=== PATIENT | male | born 1960 | race Caucasian/White ===

== ENCOUNTER 2022-06-27 07:03 | Outpatient (CLI) | payer OTHER | END 2022-06-27 07:30 | disposition home or self-care (01) | LOC: TOM 07:03 | PROVIDERS: ATTEND Internal Medicine | DX: N40.0 Benign prostatic hyperplasia without lower urinary tract symptoms (principal); N20.0 Calculus of kidney; R31.29 Other microscopic hematuria; B00.9 Herpesviral infection, unspecified; R10.9 Unspecified abdominal pain ==

== ENCOUNTER 2023-04-24 10:58 | Outpatient (CLI) | payer OTHER | END 2023-04-24 11:02 | disposition home or self-care (01) | LOC: RAD 10:58 | PROVIDERS: ATTEND Internal Medicine Pulmonary Disease | DX: R91.1 Solitary pulmonary nodule (principal) ==

== ENCOUNTER 2025-01-25 07:24 | Outpatient (CLI) | payer OTHER ==
[2025-01-25 09:26] LABS: URINE APPEARANCE Clear; URINE BILIRRUBIN Negative (NEGATIVE); URINE BLOOD Negative; URINE COLOR Yellow; URINE KETONE Trace (NEGATIVE); URINE LEUKOCYTE Negative; URINE NITRATE Negative; URINE PROTEIN Trace (NEGATIVE); URINE UROBILINOGEN 1.0 E.U./dl
[2025-01-25 09:28] LABS: URINE BACTERIA 4.7 uL (0.0-1933)
[2025-01-25 09:30] LABS: BASO % 0.9 % (0.1-1.2); EOS # 0.12 (0.04-0.54); EOS % 2.2 % (0.7-7.0); LYMPH # 1.96 (1.18-3.74); LYMPH % 35.3 % (19.3-53.1); MEAN PLATELET VOLUME 9.70 fl (9.4-12.4); MONO # 0.45 (0.24-0.82); MONO % 8.1 % (4.7-12.5); NEUT # 2.96 (1.56-6.13); NEUT % 53.1 % (34.0-71.1); RED CELL DISTRIBUTION WIDTH 13.2 % (11.6-14.4)
[2025-01-25 09:39] LABS: URINE CAST 0.00 uL (0.0-1.40); URINE EPITHELIAL CELLS 0.1 uL (0.0-38.8); URINE GLUCOSE >=1000 MG/DL (NEGATIVE); URINE RBC 0.5 uL (0.0-20.8); URINE WBC 1.3 uL (0.0-23.2)
[2025-01-25 10:13] LABS: ALT/SGPT 34.0 U/L (12-78); AST/SGOT 24.0 U/L (15-37); BILIRUBIN TOTAL 0.58 mg/dL (0.3-1.2); BUN CREA RATIO 17.0 (7.0-25.0); CHOL HDL RATIO 2.9 (0-5.0); CREATININE SERUM 1.13 mg/dL (0.70-1.30); GFR 65.33; GLOBULINA 3.2 G/DL (2.4-3.5); GLUCOSE FASTING 125.0 mg/dL (65-100); HDL 39.0 mg/dl (40-60); LDL 50.0 mg/dl (0-130); OSMOLALITY SERUM 287.0 MOSM/KG (275-295); VLDL 26.0 (0-39)
[2025-01-25 10:15] LABS: CREATININE URINE RANDOM 119.0 MG/DL (30-125)
== END 2025-01-25 07:31 | disposition home or self-care (01) ==
LOC: LAB 07:24
PROVIDERS: ATTEND Internal Medicine
DX: E11.51 Type 2 diabetes mellitus with diabetic peripheral angiopathy without gangrene (principal); I73.9 Peripheral vascular disease, unspecified; J84.89 Other specified interstitial pulmonary diseases; I10 Essential (primary) hypertension; N20.0 Calculus of kidney; G47.33 Obstructive sleep apnea (adult) (pediatric); E78.49 Other hyperlipidemia; K76.0 Fatty (change of) liver, not elsewhere classified; I11.9 Hypertensive heart disease without heart failure; Z83.438 Family history of other disorder of lipoprotein metabolism and other lipidemia; R80.9 Proteinuria, unspecified; N18.2 Chronic kidney disease, stage 2 (mild); R80.8 Other proteinuria; E11.22 Type 2 diabetes mellitus with diabetic chronic kidney disease; I13.10 Hypertensive heart and chronic kidney disease without heart failure, with stage 1 through stage 4 chronic kidney disease, or unspecified chronic kidney disease; E78.2 Mixed hyperlipidemia; R31.9 Hematuria, unspecified; N28.1 Cyst of kidney, acquired

== ENCOUNTER 2025-03-29 07:22 | Outpatient (CLI) | payer OTHER ==
[2025-03-29 09:23] LABS: ALT/SGPT 29.0 U/L (12-78); AST/SGOT 20.0 U/L (15-37); BILIRUBIN TOTAL 0.55 mg/dL (0.3-1.2); BUN CREA RATIO 24.0 (7.0-25.0); CHOL HDL RATIO 3.6 (0-5.0); CREATININE SERUM 0.99 mg/dL (0.70-1.30); GFR 76.1; GLOBULINA 3.1 G/DL (2.4-3.5); GLUCOSE FASTING 131.0 mg/dL (65-100); HDL 39.0 mg/dl (40-60); LDL 67.0 mg/dl (0-130); OSMOLALITY SERUM 285.0 MOSM/KG (275-295); TSH 1.22 uIU/mL (0.358-3.74); VLDL 34.0 (0-39)
== END 2025-03-29 07:41 | disposition home or self-care (01) ==
LOC: LAB 07:22
DX: E11.65 Type 2 diabetes mellitus with hyperglycemia (principal); E55.9 Vitamin D deficiency, unspecified; E78.2 Mixed hyperlipidemia; E66.9 Obesity, unspecified; I11.9 Hypertensive heart disease without heart failure